=== PATIENT | female | born 1995 | race Caucasian/White ===

== ENCOUNTER 2016-12-21 20:23 | Emergency (ER) | payer MEDICAID ==
--- NOTE | 2016-12-21 20:52 | ERNOTE ---
Date of Service: 12/21/16 Time Seen by Provider: 12/21/16 20:43 Stated Complaint: COUGH, CONGESTION Source: patient Immunizations: IMMUNIZATION HX Immunizations Up to Date Yes History of Influenza Vaccine No Hx Pneumococcal Vaccination No Allergies/Adverse Reactions: Allergies cefaclor [From Ceclor] Allergy (Unknown, Verified 12/21/16 20:40) Penicillins Allergy (Unknown, Verified 12/21/16 20:40) Home Medications: HOME MEDICATIONS Docusate Sodium [Colace] 100 mg PO BID #28 capsule 11/13/16 [Last Taken Unknown] Ferrous Sulfate 325 mg PO DAILY #60 tablet 11/13/16 [Last Taken Unknown] Ibuprofen [Motrin] 200 - 800 mg PO Q6H PRN #100 tab 11/13/16 [Last Taken Unknown ] Vit#96/Ferrous Fum/FA [ S] 1 tab PO DAILY #90 tablet 11/13/16 [ Last Taken Unknown] Benzonatate [Tessalon Perle] 100 mg PO TID PRN #30 capsule 12/21/16 [Last Taken Unknown] - History of Present Ilness Narrative: Mother has been having a mild productive cough and runny nose for a couple of weeks. There has not been any dyspnea or fevers. Denies any vomiting or diarrhea. Other members of the house hold have had similar URI symptoms. She has been taking OTC medications and does not seem to be improving. she has also brought her one month in for similar symptoms. Timing: constant Severity: mild Frequency/Possible Cause: Reports: occasional episodes Modifying Factors - Improves: Reports: other - none Modifying Factors - Worsens: Reports: lying down Prior Treatment: Reports: other - OTC medications Review of Systems - Review of Systems Constitutional: Present: no symptoms reported EYE: Present: no symptoms reported ENT: Present: See HPI Respiratory: Present: See HPI Cardiology: Present: no symptoms reported Gastrointestinal/Abdominal: Present: no symptoms reported Genitourinary: Present: no symptoms reported Musculoskeletal: Present: no symptoms reported Skin: Present: no symptoms reported Neurological: Present: no symptoms reported Endocrine: Present: no symptoms reported Hematologic/Lymphatic: Present: no symptoms reported Psych: Present: no symptoms reported - Patient's Past Medical History Patient History - Medical: Migraines Patient History - Cardiac/Respiratory: No pertinent hx Patient History - Cancer: No Hx of Cancer Patient History - Surgical Procedures: Appendectomy, T & A Patient History - Other: None LMP (Calendar): 03/04/16 - Family History Mother Family History - Medical: No pertinent hx Father Family History - Medical: No pertinent hx - Social History Living Situations: home Does anyone smoke in the home?: No Alcohol Use: none Drug Use: none - Immunizations Immunizations Up to Date: Yes Hx Pneumococcal Vaccination: No History of Influenza Vaccine: No Physical Exam - Physical Exam General Appearance: Present: no apparent distress Eye Exam: Normal inspection: bilateral Ears, Nose, Throat: Present: normal ENT inspection Neck: Present: normal inspection Respiratory: Present: no respiratory distress, normal breath sounds Cardiovascular/Chest: Present: regular rate, rhythm Gastrointestinal/Abdominal: Present: nondistended Back Exam: Present: normal inspection Extremity Exam: Present: normal inspection Neurological Exam: Present: alert, oriented, lather apprentice II-XII nml as tested Skin Exam: Present: normal color ED Progress - Vital Signs Patient's Vital Signs:: I have reviewed the patient's vital signs. Vital Signs: Vital Signs 12/21/16 20:35 Temperature 36.4 C L Pulse Rate 88 Respiratory 16 Rate Blood Pressure 121/76 O2 Sat by Pulse 98 Oximetry - Progress/Reassessment Chief Complaint: Upper Respiratory Symptoms Progress:: Unchanged Departure - Departure Clinical Impression: URI (upper respiratory infection) Disposition: Home self-care Condition: Good Instructions: Upper Respiratory Infection, Adult, [id number] Print Language: Azerbaijani Additional Instructions: You can use a Netti Pot for a sinus rinse which will help with the congestion. Take OTC decongestants. Drink lots of water, about 2-3 liters per day while you are sick. Referrals: Stacy Martinez MD [Primary Care Provider] - Prescriptions: Benzonatate [Tessalon Perle] 100 mg PO TID PRN #30 capsule PRN Reason: Cough
[2016-12-21 22:04] VITALS: BP 121/71
== END 2016-12-21 22:37 | disposition home or self-care (01) ==
LOC: ER 20:23
DX: J06.9 Acute upper respiratory infection, unspecified (principal)

== ENCOUNTER 2017-01-13 20:12 | Emergency (ER) | payer MEDICAID ==
--- NOTE | 2017-01-13 22:04 | ERNOTE ---
GI Bleeding/Rectal Pain ER Presenting Symptoms: rectal bleeding Time Seen by Provider: 01/13/17 21:54 Source: patient Exam Limitations: no limitations Immunizations: IMMUNIZATION HX Immunizations Up to Date Yes History of Influenza Vaccine No Hx Pneumococcal Vaccination No Allergies/Adverse Reactions: Allergies cefaclor [From Ceclor] Allergy (Unknown, Verified 12/21/16 20:40) Penicillins Allergy (Unknown, Verified 12/21/16 20:40) Home Medications: HOME MEDICATIONS Ibuprofen [Motrin] 200 - 800 mg PO Q6H PRN #100 tab 11/13/16 [Last Taken Unknown ] Narrative: Pt had some mild abdominal pain today and had a BM she states the stool was "Filled with blood" Timing: unsure - happened once Quality/Severity: Present: mild, dullness Date of Last Bowel Movement: 01/13/17 Nausea/Vomiting: Present: none Abdominal Pain: Present: diffuse Review of Systems - Review of Systems Constitutional: Present: no symptoms reported, recent illness - diarrhea 1 week ago, resolved for the past 2-3 days EYE: Present: no symptoms reported ENT: Present: no symptoms reported Respiratory: Present: no symptoms reported Cardiology: Present: no symptoms reported Gastrointestinal/Abdominal: Present: See HPI, diarrhea, abdominal pain. Absent : constipation Genitourinary: Present: no symptoms reported Musculoskeletal: Present: no symptoms reported Skin: Present: no symptoms reported Neurological: Present: no symptoms reported Endocrine: Present: no symptoms reported Hematologic/Lymphatic: Present: no symptoms reported - Patient's Past Medical History Patient History - Medical: Migraines Patient History - Cardiac/Respiratory: No pertinent hx Patient History - Cancer: No Hx of Cancer Patient History - Surgical Procedures: Appendectomy, T & A Patient History - Other: None LMP (Calendar): 03/04/16 - Family History Mother Family History - Medical: No pertinent hx Father Family History - Medical: No pertinent hx - Social History Living Situations: home Abuse History: No History of abuse Psych History: No pertinent hx Does anyone smoke in the home?: No Alcohol Use: none Drug Use: none - Immunizations Immunizations Up to Date: Yes Hx Pneumococcal Vaccination: No History of Influenza Vaccine: No Physical Exam - Physical Exam General Appearance: Present: wd/wn, alert, no apparent distress Eye Exam: Normal inspection: bilateral Respiratory: Present: no respiratory distress, no accessory muscle use Gastrointestinal/Abdominal: Present: normal bowel sounds, nontender, nondistended, soft Rectal Exam: Present: nontender, normal rectal tone. Absent: mass, fecal impaction, hemorrhoids Back Exam: Present: normal inspection Neurological Exam: Present: alert, oriented, normal mood/affect, no motor/ sensory deficits Skin Exam: Present: normal color, warm/dry ED Progress - Results and Orders Patient's Lab Results:: I have reviewed the patient's lab results. Results and Orders: Laboratory Tests 01/13/17 01/13/17 16:02 16:02 WBC 10.9 H Hgb 12.5 Hct 39.4 Plt Count 331 Sodium 141 Potassium 3.9 Chloride 105 Carbon Dioxide 27.2 Anion Gap 12.7 BUN 14 Creatinine 0.69 Random Glucose 88 Calcium 8.8 Total Bilirubin 0.2 AST 10 ALT 13 L Alkaline Phosphatase 78 Total Protein 7.6 Albumin 3.7 TSH 1.282 Free T4 0.81 Laboratory Tests 01/13/17 22:55 Stool Occult Blood Positive H - Vital Signs Patient's Vital Signs:: I have reviewed the patient's vital signs. - X-Ray X-Ray #1 X-Ray: abdomen Interpretation: Reviewed by me X-ray Comments: non specific bowel gas pattern, scattered fecal retention - Progress/Reassessment Chief Complaint: GI Bleed Departure Clinical Impression: Rectal bleeding - Departure Disposition: Home Follow Up Needed Condition: Good Instructions: Gastrointestinal Bleeding, [id number] Additional Instructions: See your regular doctor for further work up if you continue to have bleeding. Increase your fiber intake either through high fiber food or through fiber supplements
[2017-01-13 22:09] VITALS: BP 109/72
--- OUTSIDE RECORDS SUMMARY | 2017-01-13 22:19 | XMS REPORT | Continuity of Care Document ---
:1995 Author Organization [facility] ([facility]) Address [address] [place] [address] Phone [phone] Care Team Providers Name Role Phone Coni Rodríguez Primary Care Provider [phone] Source Comments This disclosure is being made pursuant to the Care Everywhere program, applicable federal and state laws, and may not contain all informaitonavailable regarding this patient.[facility] ([facility]) Active Allergies and Adverse Reactions Allergen Noted Date Severity Reactions Comments Cefaclor Urticaria (Hives) Penicillins Urticaria (Hives) Current Medications No known medications Active Problems Problem Noted Date labor in third trimester without delivery 10/13/2016 Currently Estimated Date of Delivery Comments Yes 12/20/2016 Based on Patient Reported Most Recent Encounters Date Type Specialty Providers Description 12/23/2016 Lab Requisition Pathology Lab Services, Dx: Dermatitis [facility] 10/19/2016 Telephone General Care Valerie Bear, Chief Comp: Inpatient - Adult RN Laboring 10/18/2016 Hospital Encounter General Care Inpatient - Adult 10/14/2016 Anesthesia Event General Care Kyler Waters, Inpatient - Adult 10/13/2016 Hospital Encounter Women's Health Chief Comp: Patient Reported Reason For Visit 10/13/2016 - Hospital Encounter General Care Tracey Chavez, Dx: labor 10/18/2016 Inpatient - Adult DO in third trimester Cande Steward, without delivery MD (Primary Dx) Wendy Valencia MD Elson, Marygrace, MD 10/13/2016 Telephone Obstetrics Libby Morse MD Social History Tobacco Use Types Packs/Day Years Used Date Current Every Day Smoker Cigarettes 0.25 4 Smokeless Tobacco: Never Used Tobacco Cessation:Ready to Quit: No Comments: Last Filed Vital Signs Vital Sign Reading Time Taken Blood Pressure 94/43 10/18/2016 8:00 AM FLEECE TIER Pulse 69 10/18/2016 8:00 AM FLEECE TIER Temperature 36.6 C (97.9 F) 10/18/2016 8:00 AM FLEECE TIER Respiratory Rate 16 10/18/2016 8:00 AM FLEECE TIER Height 1.702 m (5' 7.01") 10/13/2016 11:36 PM FLEECE TIER Weight 80.74 kg (178 lb) 10/13/2016 11:36 PM FLEECE TIER Body Mass Index 27.87 10/13/2016 11:36 PM FLEECE TIER Oxygen Saturation 99% 10/18/2016 8:00 AM FLEECE TIER Plan of Care Date Type Specialty Providers Description 04/08/2017 Appointment Otolaryngology Neil Chapa, Chief Comp: Patient MD Reported Reason For [address] [place] [address] [phone] (Fax) Health Maintenance Due Date Last Done Comments Hepatitis B Vaccine (1 of 3 - Primary Series) 1996 HPV Vaccine (1 of 3 - Female/Unknown 3 Dose Series) 2007 Tdap Vaccine 2007 Meningococcal Vaccine (1 of 1) 2012 Lipid Disorder Screening 2014 MMR Vaccine 2014 Td Vaccine 2014 Varicella Vaccine (1 of 2 - Adult - No Evidence of 2014 Immunity) Pneumococcal Vaccine (1 of 1 - PPSV23) 2015 Influenza Vaccine: Seasonal (#1) 06/23/2016 Results from Last 3 Months DERMATOPATHOLOGY EXAM (12/19/2016 1:14 PM) Component Value Range Case Report Surgical Pathology Case: [id number] Authorizing Provider:Lab Services, [facility] Collected: 12/19/2016 01:14 PM Pathologist: Estella Mccoy MD Received:12/23/2016 01:14 PM Specimen:Skin, other, specify, R Posterior upper arm Diagnosis Skin, right posterior upper arm, punch: Superficial and deep perivascular dermatitis with scattered eosinophils consistent with hypersensitivity dermatitis. I have personally reviewed this case and edited the report as necessary. Clinical Information Tissue source/site: [id number] posterior upper arm. Pertinent clinical history and findings: Erythematous slight papules with pruritis. Clinical differential diagnosis: Hypersensitivity reaction versus less likely vasculitis versus hives versus h/o lymphadenopathy-recurrent. Gross Description ATrentReceived in formalin, in a container labeled Katie Chandra, date of , and "R Posterior upper arm", is a 0.4 cm in diameter x 0.4 cm in length strauss punch biopsy.The specimen is inked,bisected and submitted entirely in A1. AJF/rls Microscopic Description Sections show a punch of skin with a basketweave stratum corneum and a superficial and deep perivascular and periadnexal lymphocytic inflammatory infiltrate with scattered eosinophils noted. Performed by:Jayme Ross MD, R4/tkr Specimen Skin - Skin, other, specify OB ULTRASOUND (LDR) (10/14/2016 10:00 AM) Narrative Obstetric Ultrasound Report Detailed Survey Referral from: Dr. Montrell Crowley [facility] [address] Department of Obstetrics & Gynecology [place], [id number] [address] [place], [place] PATIENT INFORMATION: Name: KATIE CHANDRA MR#: [id number] Age:21 y/oExam Date: 10/14/2016 :1995Visit #: 1 LMP:Not Available Location:Labor and Delivery # Fetuses: 1 INDICATION: labor DATING: Assigned GA GA by LMPGA by US (THUAN)THUAN NA 30 5/7 wks 30 3/7 wks1/ BIOMETRY: BPD: 76.5 mm30 5/7 wksHC:291.3 mm 32 1/7 wks(58%) (47%) Femur: 58.0 mm30 2/7 wksAC:274.2 mm 31 3/7 wks(66%) (43%) EFW: 1700 gms3 lbs 12 oz (67%) Lat Ventricles: 4.52 mmCisterna Magna: 6.48 mm Heart Rate: 123 bpmFL/AC:0.21 HL/BPD: 0.69 FL/BPD: 0.75 Humerus:53.1 mm30 04/29 (61%) PRESENTATION/CORD/PLACENTA/FLUID/CERVIX: Presentation: Breech Umbilical Cord: 3 Vessel Cord.Suboptimal visualization of insertion into the placenta. Placenta: Anterior.There Is No Evidence Of Placenta Previa. Amniotic Fluid: Maximum Vertical Pocket=44 mm.Subjective AF Volume : Normal. (IZV=606 mm) ANATOMICAL SURVEY: Normal ------ Lateral Ventricles Cerebellum Cisterna Magna Nose Lips Cervical Spine Thoracic Spine Lumbar Spine Four Chamber ViewRVOT LVOT Cardiac [place] Cardiac Position Heart Rate Ductal ArchIVC Cardiac Rhythm Diaphragm Ventral Wall Stomach Kidney - LeftKidney - Right Bladder Forearm - Left Forearm - RightLower Leg - Left Lower Leg - Right Suboptimal Nuchal FoldProfile Sacrum Hand - Left Hand - Right Foot - Left Not Visualized Palate Aortic Arch SVC Abnormal -------- Foot - Right (POSTURED, TURNED IN) TARGETED CARDIAC: Ductal Arch: Normal IVC: Normal SVC: Not Visualized Cardiac Rhythm:Normal BUSINESS EDUCATION TEACHER FINDINGS: Ovaries:Left:Normal Right: Normal EFW Summary Table Exam DateFetus #EFW Percentile ------ - 10/14/16 [id number] % AMNIOTIC FLUID VOLUME: NORMALTotal MONTEZ: 102 mm.Subjective AF Volume: Normal. Maximum Vertical Pocket:44 mm CERVIX: Suboptimal visualization COMMENTS: I attest to having personally viewed the images and my comments and impression are as follows: IUP consistent with prior sonogram. The exam was limited due to late gestational age. Appropriate amniotic fluid. The right foot appearsturned in at the ankle appearing clubbed. I briefly discussed the right clubbed foot.We discussed that in isolation this is a finding that is multifactorial in nature and not necessarily genetic/chromsomal in origin.We discussed the possibility of pediatric orthopedic involvement with regard to serial casting if the right foot is truly clubbed.The patient expressed understanding. Her questions were answered. Dr. Ruperto Bean MD ([id number]) Analyst Market Intelligence: Monika Harry RDMS Procedure Note Fercho, Incoming Imaging Results - ThuOct 20, 2016 2:01 PM FLEECE TIER Obstetric Ultrasound Report Detailed Survey Referral from: Dr. Montrell Crowley [facility] [address] Department of Obstetrics &Gynecology [address] [place], [place] PATIENT INFORMATION: Name: KATIE CHANDRA MR#: [id number] Age: 21 y/o Exam Date: 10/14/2016 : 1995 Visit #: 1 LMP: Not Available Location: Labor and Delivery # Fetuses: 1 INDICATION: labor DATING: Assigned GA GA by LMP GA by US (THUAN) THUAN NA 30 5/7 wks 30 3/7 wks 12/20/16 BIOMETRY: BPD: 76.5 mm 30 5/7 wks HC: 291.3 mm 32 /7 wks(58%) (47%) Femur: 58.0 mm 30 2/7 wks AC: 274.2 mm 31 3/7 wks(66%) (43%) EFW: 1700 gms 3 lbs 12 oz(67%) Lat Ventricles: 4.52 mm Cisterna Magna: 6.48 mm Heart Rate: 123 bpm FL/AC: 0.21 HL/BPD: 0.69 FL/BPD: 0.75 Humerus: 53.1 mm 30 6/7 (61%) PRESENTATION/CORD/PLACENTA/FLUID/CERVIX: Presentation: Breech Umbilical Cord: 3 Vessel Cord. Suboptimal visualization of insertion into the placenta. Placenta: Anterior. There Is No Evidence Of Placenta Previa. Amniotic Fluid: Maximum Vertical Pocket=44 mm. Subjective AFVolume: Normal. (APF=379 mm) ANATOMICAL SURVEY: Normal ------ Lateral Ventricles Cerebellum Cisterna Magna Nose Lips Cervical Spine Thoracic Spine Lumbar Spine Four Chamber View RVOT LVOT Cardiac [place] Cardiac Position Heart Rate Ductal Arch IVC Cardiac Rhythm Diaphragm Ventral Wall Stomach Kidney - Left Kidney - Right Bladder Forearm - Left Forearm - Right Lower Leg - Left Lower Leg - Right Suboptimal Nuchal Fold Profile Sacrum Hand - Left Hand - Right Foot - Left Not Visualized Palate Aortic Arch SVC Abnormal -------- Foot - Right (POSTURED, TURNED IN) TARGETED CARDIAC: Ductal Arch: Normal IVC: Normal SVC: Not Visualized Cardiac Rhythm: Normal BUSINESS EDUCATION TEACHER FINDINGS: Ovaries: Left: Normal Right: Normal EFW Summary Table Exam Date Fetus # EFW Percentile --------- ------- ---- 10/14/16 1 1700 67 % AMNIOTIC FLUID VOLUME: NORMAL Total MONTEZ: 102 mm. Subjective AF Volume: Normal. Maximum Vertical Pocket: 44 mm CERVIX: Suboptimal visualization COMMENTS: I attest to having personally viewed the images and my comments and impression are as follows: IUP consistent with prior sonogram. The exam was limited due to late gestational age. Appropriate amniotic fluid. The right foot appears turned in at the ankle appearing clubbed. I briefly discussed the right clubbed foot. We discussed that in isolation this is a finding that is multifactorial in nature and not necessarily genetic/chromsomal in origin. We discussed the possibility of pediatric orthopedic involvement with regard to serial casting ifthe right foot is truly clubbed. The patient expressed understanding. Her questions were answered. Dr. Ruperto Bean MD ([id number]) Analyst Market Intelligence: Monika Harry RDMS GROUP B STREPTOCOCCUS PCR (10/14/2016 3:11 AM) Component Value Range GRPBPCR Negative Negative Specimen Vaginal/Rectal Narrative Test methodology:Nucleic acid amplification; illumigene Assay ([employer]) The performance characteristics of this test were determined by the [facility].It has not been cleared or approved by the U.S. Food and DrugAdministration (FDA). The FDA has determined that such clearance or approval is not necessary.This test is for clinical purposes.It should not be regarded as investigational or for research. The laboratory is certified under the Clinical Laboratory Improvement Amendments of 1988 (CLIA) as qualified to perform high complexity clinical laboratory testing. URINE CULTURE, REFLEXED (10/14/2016 1:27 AM) Component Value Range Quantitative Culture Skin Winnie(A) Specimen Culture - Urine, Midstream clean catch Narrative Identification performed by MALDI-TOF mass spectrometry (MS).The performance characteristics of MALDI-TOF MS were determined by the [facility].It has not been cleared orApproved by the FDA. The FDA has determined that such clearance or approval is not necessary.This test is for clinical purposes. It should not be regarded as investigational or for research.The laboratory is certified under the Clinical Laboratory Improvement Amendments of 1988 (CLIA) as qualified to perform high complexity clinical laboratory testing. NEISSERIA GONORRHOEAE PCR (10/14/2016 1:27 AM) Component Value Range Gonorrhea PCR Negative Negative Specimen Other - Urine, Midstream clean catch Narrative Test methodology:PCR amplification; CT/NG Assay ([employer]) CHLAMYDIA TRACHOMATIS DETECTION BY PCR (10/14/2016 1:27 AM) Component Value Range Chlamydia Trach PCR Negative Negative Specimen Other - Urine, Midstream clean catch Narrative Test methodology:PCR amplification; CT/NG Assay ([employer]) MICROSCOPIC URINALYSIS (10/14/2016 1:26 AM) Component Value Range White Blood Cells, Urine 5 0-5 /HPF Red Blood Cells, Urine <1 0-2 /HPF Squamous Epithelial Cells, Urine 45(H) <=10 /LPF Mucous-Urine Rare None, Rare Specimen Urine URINALYSIS WITH REFLEX CULTURE (10/14/2016 1:26 AM) Component Value Range Color, Urine Yellow Straw, Pale Yellow, Yellow, Clear, None Clarity, Urine Clear Clear pH, Urine 5.0 <9.0 Spec [place], Urine 1.025 1.000-1.030 Glucose, Urine Negative Negative Blood, Urine Negative Negative Ketones, Urine Trace(A) Negative Protein, Urine Negative Negative Urobilinogen, Urine Normal Normal Bilirubin, Urine Negative Negative Leukocyte Esterase, Urine Trace(A) Negative Nitrite, Urine Negative Negative Specimen Urine DRUGS OF ABUSE - URINE (10/14/2016 1:26 AM) Component Value Range Amphetamines, Urine NegativeComment: Negative Test cut-off: 1000 ng/mL for d-methamphetamine. Benzodiazepine, Urine NegativeComment: Negative Test cut-off:100 ng/mL Cocaine, Urine NegativeComment: Negative Test cut-off:300 ng/mL Opiate, Urine NegativeComment: Negative Test cut-off:300 ng/mL for morphine Oxycodone, Urine NegativeComment: Negative Test cut-off:300 ng/mL Amphetamines assay cross-reacts well with amphetamine and methamphetamine, as well as the "die designer" amphetamines MDMA ("Ecstasy"), MDA, MDEA ("Mariana"), and MBDB. Labetalol may also produce false positi ves due to cross-reactivity of a metabolite.The amphetamines assay has little or no cross-reactivity with ephedrine, pseudoephedrine, phentermine, and methylphenidate. Opiates assay has low cross-reac tivity for buprenorphine, fentanyl, meperidine, methadone, oxycodone, and propoxyphene (all have cut-offs greater than 75,000 ng/mL). Please see Laboratory Services Handbook ([email or web address]/path_ handbook.index.html) for more detailed information on assay cross-reactivity. Drug of abuse screening tests are to be used for medical purposes only and not for non-medical purposes (e.g., employee, bilingual sales consultant, or forensic testing). Specimen Urine URINALYSIS WITH REFLEXED CULTURE AND MICROSCOPIC EXAM (10/14/2016 1:26 AM) Specimen Culture - Urine, Midstream clean catch Narrative The following orders were created for panel order URINALYSIS WITH REFLEXED CULTURE AND MICROSCOPIC EXAM. Procedure Abnormality Status --------- ------ URINALYSIS WITH REFLEX C...[[id number]]AbnormalFinal result MICROSCOPIC URINALYSIS[[id number]] Abnormal Final result URINE CULTURE, REFLEXED[[id number]]Abnormal Final result Please view results for these tests on the individual orders. CBC (COMPLETE BLOOD COUNT) (10/14/2016 12:31 AM) Component Value Range WBC Count 14.0(H) 3.7-10.5 K/MM3 RBC Count 3.50(L) 4.00-5.20 M/MM3 Hemoglobin 10.2(L) 11.9-15.5 g/dL Hematocrit 30(L) 35-47 % MCV (Mean Corpuscular Volume) 85 82-99 FL MCH (Mean Corpuscular Hemoglobin) 29 25-35 PG MCHC (Mean Corpuscular Hemoglobin Concentration) 34 32-36 % Platelet Count 250 150-400 K/MM3 MPV (Mean Platelet Volume) 10.8 9.4-12.3 FL RBC Dist Width-STD 41.5 36.4-46.3 FL RBC Distrib Width 13.4 9.0-14.5 % Nucleated RBC 0 /100 WBC Specimen Whole Blood CREATININE (10/14/2016 12:22 AM) Component Value Range Creatinine 0.5Comment: 0.5-1.0 mg/dL Creatinine switched to enzymatic method on 04/01/2011.GFR equation switched to IDMS-traceable MDRD equation on 04/01/2011. Calculated GFR values are not valid in clinical settings where serum creatinine is changing. Calculated GFR >90 >60 mL/min/1.73 m2 Specimen Blood TYPE AND SCREEN (BLOOD TYPE(ABORH) AND RBC ANTIBODY SCREEN) (10/14/2016 12:22 AM ) Component Value Range ABORH A Positive Specimen Expiration Date 2016-10-17 Antibody Screen Negative Specimen Blood
== END 2017-01-13 23:22 | disposition home or self-care (01) ==
LOC: ER 20:12
DX: K62.5 Hemorrhage of anus and rectum (principal)